=== PATIENT | female | born 1950 | race Caucasian/White ===

== ENCOUNTER → 2016-07-08 | Outpatient (CLI) | payer MEDICARE, OTHER ==
--- NOTE | 2016-07-09 10:45 | MM ---
Reason for exam: screening (asymptomatic). Last mammogram was performed 1 year ago. History: Patient is postmenopausal. Benign excisional biopsy of the right breast, 1969. Physical Findings: A clinical breast exam by your physician is recommended on an annual basis and results should be correlated with mammographic findings. MG 3D Screening Mammo W/Cad Bilateral CC and MLO view(s) were taken. Prior study comparison: July 05, 2015, right breast MG 3d work up w/cad RT. July 02, 2015, bilateral MG screening mammo w CAD. The breast tissue is almost entirely fat. Finding: There are typically benign calcifications in both breasts. No significant changes in finding since July 05, 2015 and July 02, 2015. ASSESSMENT: Benign, BI-RAD 2 RECOMMENDATION: Routine screening mammogram of both breasts in 1 year.
== END ==
LOC: RADMAMWWP 10:40
PROVIDERS: ATTEND Family Medicine
DX: Z12.31 Encounter for screening mammogram for malignant neoplasm of breast (principal)
CPT/HCPCS: 77063; G0202

== ENCOUNTER → 2017-07-27 | Outpatient (CLI) | payer MEDICARE, OTHER ==
--- NOTE | 2017-07-28 07:20 | MM ---
Reason for exam: screening (asymptomatic). Last mammogram was performed 1 year and 1 month ago. History: Patient is postmenopausal. Benign excisional biopsy of the right breast, 1970. Physical Findings: A clinical breast exam by your physician is recommended on an annual basis and results should be correlated with mammographic findings. MG 3D Screening Mammo W/Cad Bilateral CC and MLO view(s) were taken. Prior study comparison: July 08, 2016, bilateral MG 3d screening mammo w/cad. July 05, 2015, right breast MG 3d work up w/cad RT. July 05, 2015, right breast US breast workup RT. The breast tissue is almost entirely fat. Finding: There are a few typically benign round calcifications in both breasts. There is no discrete abnormality. ASSESSMENT: Benign, BI-RAD 2 RECOMMENDATION: Routine screening mammogram of both breasts in 1 year.
== END | disposition home or self-care (01) ==
LOC: RADMAMWWP 07:36
PROVIDERS: ATTEND Family Medicine
DX: Z12.31 Encounter for screening mammogram for malignant neoplasm of breast (principal)
CPT/HCPCS: 77063; 77067

== ENCOUNTER → 2018-08-23 | Outpatient (CLI) | payer MEDICARE, OTHER ==
--- NOTE | 2018-08-25 08:47 | MM ---
Reason for exam: screening (asymptomatic). Last mammogram was performed 1 year and 1 month ago. History: Patient is postmenopausal. Benign excisional biopsy of the right breast, 1970. Physical Findings: A clinical breast exam by your physician is recommended on an annual basis and results should be correlated with mammographic findings. MG 3D Screening Mammo W/Cad Bilateral CC and MLO view(s) were taken. Prior study comparison: July 27, 2017, bilateral MG 3d screening mammo w/cad. July 08, 2016, bilateral MG 3d screening mammo w/cad. No significant changes when compared with prior studies. ASSESSMENT: Benign, BI-RAD 2 RECOMMENDATION: Routine screening mammogram of both breasts in 1 year.
== END | disposition home or self-care (01) ==
LOC: RADMAMWWP 13:45
PROVIDERS: ATTEND Family Medicine
DX: Z12.31 Encounter for screening mammogram for malignant neoplasm of breast (principal)
CPT/HCPCS: 77063; 77067

== ENCOUNTER 2018-11-25 18:39 | Emergency (ER) | payer MEDICARE, OTHER ==
[2018-11-25] MEDS ORDERED: IBUPROFEN 600 MG TAB PO STA (19:29)
[2018-11-25] MEDS ORDERED: SODIUM CHLORIDE 0.9% 1,000 ML IV STA ×3 (19:29→21:49)
[2018-11-25] MEDS ORDERED: ACETAMINOPHEN TAB 500 MG TAB PO STA (19:29)
[2018-11-25 20:27] LABS: Basophils % (A) 0 %; Eosinophils # (A) 0.1 k/uL (0-0.7); Eosinophils % (A) 0 %; HCT 42.1 % (34.0-46.0); HGB 14.3 gm/dL (11.4-16.0); Lymphocytes # (A) 1.3 k/uL (1.0-4.8); Lymphocytes % (A) 7 %; MCH 30.5 pg (25.0-35.0); MCHC 33.9 g/dL (31.0-37.0); Mean Platelet Volume 7.4; Monocytes # (A) 1.1 k/uL (0-1.0); Monocytes % (A) 6 %; Neutrophils # (A) 15.2 k/uL (1.3-7.7); Neutrophils % (A) 84 %; Platelet Count 192 k/uL (150-450); RBC 4.68 m/uL (3.80-5.40); RDW 14.6 % (11.5-15.5); WBC 18.2 k/uL (3.8-10.6)
[2018-11-25 20:32] LABS: Albumin 4.1 g/dL (3.5-5.0); Calcium 9.2 mg/dL (8.4-10.2); Magnesium 1.8 mg/dL (1.6-2.3); Phosphorus 2.7 mg/dL (2.5-4.5); Potassium 3.7 mmol/L (3.5-5.1); Total Bilirubin 0.7 mg/dL (0.2-1.3); Total Protein 7.1 g/dL (6.3-8.2)
[2018-11-25 20:44] VITALS: RESP 17
[2018-11-25 21:15] LABS: Appearance,Urine Clear (Clear); Bilirubin,Urine Negative (Negative); Blood,Urine Small (Negative); Color,Urine Yellow; Glucose,Urine (UA) Negative (Negative); Hyaline Casts,Urine 3 /lpf (0-2); Ketones,Urine 1+ (Negative); Leukocyte Esterase,Urine Negative (Negative); Mucus,Urine Moderate /hpf; Nitrite,Urine Negative (Negative); PH, Urine 5.5 (5.0-8.0); Protein,Urine 1+ (Negative); RBC,Urine 8 /hpf (0-5); Specific Gravity,Urine 1.034 (1.001-1.035); Squamous Epithelial Cell,Urine 8 /hpf (0-4); Urobilinogen,Urine <2.0 mg/dL (<2.0); WBC,Urine 12 /hpf (0-5)
--- NOTE | 2018-11-25 21:34 | XR ---
EXAMINATION TYPE: XR chest 2V DATE OF EXAM: 11/25/2018 COMPARISON: NONE HISTORY: Fever and weakness TECHNIQUE: Frontal and lateral views of the chest are obtained. FINDINGS: There is no heart failure nor confluent pneumonic infiltrate. Heart size is normal. Costop hrenic angles are clear. Bony thorax is intact. IMPRESSION: No active cardiopulmonary disease. Normal heart.
[2018-11-25] MEDS ORDERED: SODIUM CHLORIDE 0.9% 1,000 ML IV ONE (21:47)
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
[2018-11-25 22:16] VITALS: BP 130/92; PULSE 88; TEMP 99.5
[2018-11-26] MEDS ORDERED: ENOXAPARIN 40 MG/0.4 ML SYRINGE SQ SCH (09:00)
== END 2018-11-25 22:24 | disposition home or self-care (01) ==
LOC: EC 18:39
DX: R50.9 Fever, unspecified (principal); R51 Headache; R42 Dizziness and giddiness; R53.81 Other malaise; R53.1 Weakness; M79.10 Myalgia, unspecified site; R11.0 Nausea; E78.5 Hyperlipidemia, unspecified; I10 Essential (primary) hypertension; Z79.899 Other long term (current) drug therapy; Z88.5 Allergy status to narcotic agent; Z87.891 Personal history of nicotine dependence
CPT/HCPCS: 36415; 71046; 80053; 81001; 83605; 83735; 84100; 85025; 87040; 87086; 87502; 96360; 96361; 99284

== ENCOUNTER → 2020-01-17 | Outpatient (CLI) | payer MEDICARE, OTHER ==
--- NOTE | 2020-01-17 09:45 | MM ---
Reason for exam: screening (asymptomatic). Last mammogram was performed 1 year and 5 months ago. History: Patient is postmenopausal. Benign excisional biopsy of the right breast, 1970. Took hormonal contraceptives for 6 months. Physical Findings: A clinical breast exam by your physician is recommended on an annual basis and results should be correlated with mammographic findings. MG 3D Screening Mammo W/Cad Bilateral CC and MLO view(s) were taken. Prior study comparison: August 23, 2018, bilateral MG 3d screening mammo w/cad. July 27, 2017, bilateral MG 3d screening mammo w/cad. There are scattered fibroglandular densities. There are benign appearing round calcifications bilaterally. There is no discrete abnormality. ASSESSMENT: Benign, BI-RAD 2 RECOMMENDATION: Routine screening mammogram of both breasts in 1 year.
== END | disposition home or self-care (01) ==
LOC: RADMAMWWP 07:43
PROVIDERS: ATTEND Family Medicine
DX: Z12.31 Encounter for screening mammogram for malignant neoplasm of breast (principal)
CPT/HCPCS: 77063; 77067

== ENCOUNTER → 2020-10-17 | Outpatient (CLI) | payer MEDICARE, OTHER ==
--- NOTE | 2020-10-17 15:12 | US ---
EXAMINATION TYPE: US kidneys/renal and bladder DATE OF EXAM: 10/17/2020 COMPARISON: NONE CLINICAL HISTORY: N18.3 kidney disease. CKD per order EXAM MEASUREMENTS: Right Kidney: 11.1 x 4.8 x 3.9 cm Left Kidney: 11.5x 3.8 x 4.6 cm Post Void Residual Volume: 31.0 mL Right Kidney: No hydronephrosis or masses seen Left Kidney: No hydronephrosis or masses seen Bladder: wnl Bilateral Jets seen: yes Normal Post Void Residual: yes There is no evidence for hydronephrosis at this point in time. No nephrolithiasis is seen. No gabriella s are identified. The urinary bladder is satisfactory distended. Bilateral ureteral jets are seen. IMPRESSION: No hydronephrosis is seen bilaterally.
== END | disposition home or self-care (01) ==
LOC: RADUSWWP 14:05
PROVIDERS: ATTEND Internal Medicine Nephrology
DX: N18.31 Chronic kidney disease, stage 3a (principal)
CPT/HCPCS: 76770

== ENCOUNTER → 2021-01-27 | Outpatient (CLI) | payer MEDICARE, OTHER ==
--- NOTE | 2021-01-28 10:52 | MM ---
Reason for exam: screening (asymptomatic). Last mammogram was performed 1 year ago. History: Patient is postmenopausal. Benign excisional biopsy of the right breast, 1970. Took hormonal contraceptives for 6 months. Physical Findings: A clinical breast exam by your physician is recommended on an annual basis and results should be correlated with mammographic findings. MG 3D Screening Mammo W/Cad Bilateral CC and MLO view(s) were taken. Prior study comparison: January 17, 2020, bilateral MG 3d screening mammo w/cad. August 23, 2018, bilateral MG 3d screening mammo w/cad. There are scattered fibroglandular densities. There are benign appearing round calcifications bilaterally. There is no discrete abnormality. ASSESSMENT: Benign, BI-RAD 2 RECOMMENDATION: Routine screening mammogram of both breasts in 1 year.
== END | disposition home or self-care (01) ==
LOC: RADMAMWWP 10:31
PROVIDERS: ATTEND Family Medicine
DX: Z12.31 Encounter for screening mammogram for malignant neoplasm of breast (principal); Z78.0 Asymptomatic menopausal state
CPT/HCPCS: 77063; 77067

== ENCOUNTER → 2021-10-24 | Outpatient (CLI) | payer MEDICARE, OTHER ==
--- NOTE | 2021-10-26 10:25 | US ---
EXAMINATION TYPE: US kidneys/renal and bladder DATE OF EXAM: 10/24/2021 COMPARISON: 10/17/2020 CLINICAL HISTORY: N18.31 KIDNEY DISEASE. CKD EXAM MEASUREMENTS: Right Kidney: 10.2 x 4.3 x 4.0 cm Left Kidney: 12.1 x 4.4 x 4.2 cm` Right Kidney: No hydronephrosis or masses seen Left Kidney: No hydronephrosis or masses seen Bladder: wnl Bilateral Jets seen: Yes IMPRESSION: 1. No suspicious renal ultrasound abnormality.
== END | disposition home or self-care (01) ==
LOC: RADUSWWP 16:22
PROVIDERS: ATTEND Internal Medicine Nephrology
DX: N18.31 Chronic kidney disease, stage 3a (principal)
CPT/HCPCS: 76770

== ENCOUNTER → 2022-02-06 | Outpatient (CLI) | payer MEDICARE, OTHER ==
--- NOTE | 2022-02-07 01:58 | MR ---
EXAMINATION TYPE: MR thoracic spine wo con DATE OF EXAM: 02/06/2022 COMPARISON: None HISTORY: Mid back pain for 2 months Multiplanar multiecho imaging of the thoracic spine with no contrast. The thoracic vertebrae have normal alignment. No compression fracture. Disc spaces are fairly normal for age. There are some spondylotic changes in the lower cervical spine with disc space narrowing at C5-6 and C6-7. The thoracic spinal cord has normal signal pattern. No edema. There is mild posterior disc bulging from T10 to L1. No spinal stenosis. There is developmentally adequate spinal canal. Ther e is no thoracic paraspinal mass. IMPRESSION: Minimal posterior disc bulging the lower thoracic spine. No spinal stenosis. No fracture.
== END | disposition home or self-care (01) ==
LOC: RADMRIMAIN 16:12
PROVIDERS: ATTEND Family Medicine
DX: M54.50 Low back pain, unspecified (principal)
CPT/HCPCS: 72146

== ENCOUNTER → 2022-07-08 | Outpatient (CLI) | payer MEDICARE, OTHER ==
--- NOTE | 2022-07-09 19:39 | MM ---
Reason for Exam: Screening (asymptomatic). Last mammogram was performed 1 year(s) and 5 month(s) ago. Patient History: Menarche at age 14. First Full-Term at age 16. Postmenopausal. Hormonal Contraceptives for 6 months. 1970, Benign Excisional Biopsy on the right side. Risk Values: Kanchan 5 year model risk: 1.4%. NCI Lifetime model risk: 3.2%. Prior Study Comparison: 08/23/2018 Bilateral Screening Mammogram, [facility]. 01/17/2020 Bilateral Screening Mammogram, [facility]. 01/27/2021 Bilateral Screening Mammogram, [facility]. Tissue Density: The breast tissue is almost entirely fat. Findings: Analyzed By CAD. There is no suspicious group of microcalcifications or new suspicious mass in either breast. Overall Assessment: Negative, BI-RAD 1 Management: Screening Mammogram of both breasts in 1 year. 1. Patient should continue monthly self breast exams. 2. A clinical breast exam by your physician is recommended on an annual basis. 3. This exam should not preclude additional follow-up of suspicious palpable abnormalities. Electronically signed and approved by: Yessi Antoine M.D. Radiologist
== END | disposition home or self-care (01) ==
LOC: RADMAMWWP 12:26
PROVIDERS: ATTEND Family Medicine
DX: Z12.31 Encounter for screening mammogram for malignant neoplasm of breast (principal); Z78.0 Asymptomatic menopausal state; Z98.890 Other specified postprocedural states
CPT/HCPCS: 77063; 77067

== ENCOUNTER 2022-10-02 09:22 | Day surgery (SDC) | payer MEDICARE, OTHER ==
[2022-09-30 09:56] VITALS: BMI 31.4
[~2022-10-02 09:22] MED LIST: LACTATED RINGERS 1,000 ML IV SCH
[2022-10-02 09:50] VITALS: TEMP 98
[2022-10-02] MEDS ORDERED: PROPOFOL 10 MG/ML 20 ML VIAL IV ONE (10:30)
--- NOTE | 2022-10-02 10:44 | P.PCN ---
Date of Procedure: 10/02/22 Procedure(s) Performed: BRIEF HISTORY: Patient is a 72-year-old pleasant white female scheduled for an elective colonoscopy as a part of screening for colon cancer. PROCEDURE PERFORMED: Colonoscopy with biopsy. PREOPERATIVE DIAGNOSIS: Screening for colon cancer. IV sedation per Anesthesia. PROCEDURE: After informed consent was obtained, the patient, was brought into the endoscopy unit. IV sedation was administered by Anesthesia under continuous monitoring. Digital rectal examination was normal. Initially the Olympus CF-160 flexible video colonoscope was then inserted in the rectum, gradually advanced into the cecum without any difficulty. Careful examination was performed as the scope was gradually being withdrawn. Ileocecal valve and the appendiceal orifice were visualized and appeared normal. Prep was excellent. Mucosa of the cecum, ascending colon, transverse colon, descending colon, sigmoid colon, and rectum appeared normal. In the proximal rectum there was a 3 mm polyp that was removed by cold biopsy.. Scattered sigmoid diverticulosis seen. Retroflexion was performed in the rectum and no lesions were seen. The patient tolerated the procedure well. IMPRESSION: 3 mm rectal polyp status post cold biopsy Scattered sigmoid diverticulosis RECOMMENDATIONS: Findings of this examination were discussed with the patient as well as her family. She was advised to follow with the biopsy results. If the biopsy result adenoma she can have a repeat colonoscopy in 5 years..
[2022-10-02 10:52] VITALS: PULSE 76; RESP 16
[2022-10-02 11:08] VITALS: BP 110/70
== END 2022-10-02 11:21 | disposition home or self-care (01) ==
LOC: ORWHC2ENDO 09:22
PROVIDERS: ATTEND Internal Medicine Gastroenterology
DX: Z12.11 Encounter for screening for malignant neoplasm of colon (principal); K62.1 Rectal polyp; K57.30 Diverticulosis of large intestine without perforation or abscess without bleeding; I10 Essential (primary) hypertension; E78.5 Hyperlipidemia, unspecified; Z79.899 Other long term (current) drug therapy; Z88.5 Allergy status to narcotic agent
CPT/HCPCS: 88305; 45380; J2704

== ENCOUNTER → 2023-04-01 | Outpatient (CLI) | payer MEDICARE, OTHER ==
[2023-04-01 12:38] LABS: Basophils % (A) 0 %; Eosinophils # (A) 0.1 k/uL (0-0.7); Eosinophils % (A) 1 %; HCT 42.4 % (34.0-46.0); Lymphocytes % (A) 34 %; MCH 31.7 pg (25.0-35.0); MCHC 32.9 g/dL (31.0-37.0); MCV 96.4 fL (80.0-100.0); Mean Platelet Volume 7.1; Monocytes # (A) 0.5 k/uL (0-1.0); Monocytes % (A) 8 %; Neutrophils # (A) 3.2 k/uL (1.3-7.7); Neutrophils % (A) 52 %; Platelet Count 219 k/uL (150-450); RDW 13.6 % (11.5-15.5)
[2023-04-01 12:40] LABS: ALT 28 U/L (4-34); AST 30 U/L (14-36); African American GFR (CKD) 64 (>60 ml/min/1.73 sqM); Albumin 4.1 g/dL (3.5-5.0); Albumin/Globulin Ratio 1.4; Alkaline Phosphatase 82 U/L (38-126); Anion Gap 9 mmol/L; Blood Urea Nitrogen 17 mg/dL (7-17); Calcium 9.5 mg/dL (8.4-10.2); Carbon Dioxide 26 mmol/L (22-30); Chloride 107 mmol/L (98-107); Glucose 97 mg/dL (74-99); Magnesium 2.1 mg/dL (1.6-2.3); Non-African American GFR(CKD) 55 (>60 ml/min/1.73 sqM); Potassium 4.3 mmol/L (3.5-5.1); Sodium 142 mmol/L (137-145); Total Bilirubin 0.7 mg/dL (0.2-1.3); Total Protein 7.1 g/dL (6.3-8.2)
[2023-04-01 12:47] LABS: NT-Pro-B-Type Natriuretic Pept 222 pg/mL
[2023-04-01 12:56] LABS: T4, Free (Free Thyroxine) 0.99 ng/dL (0.78-2.19)
== END | disposition home or self-care (01) ==
LOC: LABWHC1 11:40
PROVIDERS: ATTEND Family Medicine
DX: I10 Essential (primary) hypertension (principal); R06.09 Other forms of dyspnea; R20.8 Other disturbances of skin sensation; R06.00 Dyspnea, unspecified
CPT/HCPCS: 36415; 80053; 83735; 83880; 84439; 84443; 84481; 84484; 85025; 85379

== ENCOUNTER → 2023-04-06 | Outpatient (CLI) | payer MEDICARE, OTHER ==
--- NOTE | 2023-04-06 11:10 | CT ---
EXAMINATION TYPE: CT angio chest CT DLP: 667 mGycm, Automated exposure control for dose reduction was used. DATE OF EXAM: 04/06/2023 10:38 AM COMPARISON: None CLINICAL INDICATION:Female, 72 years old with history of I71.20 THORACIC AORTIC ANEURYSM, WITHOUT RUP TURE; Thoracic aortic aneurysm w/o rupture TECHNIQUE/CONTRAST: CTA scan of the thorax is performed with IV Contrast, patient injected with 80 mL of Isovue 370, MIP images are created and reviewed these are created on a separate workstation.. FINDINGS: Pulmonary Artery: There is no evidence for a filling defect within the pulmonary vasculature to sugge st acute pulmonary embolism. The pulmonary artery is of normal size. Lungs/Pleura: Mild centrilobular emphysema changes are present. No evidence of focal consolidation, p leural effusion or pneumothorax. Airway: Large airways are patent. Heart: Heart is within normal limits for size. Mild to moderate atherosclerotic desiccation is greate r aorta. Vasculature: No evidence for intramural hematoma on noncontrast imaging. No evidence of intimal flap to suggest dissection. No aneurysm identified. Scattered atherosclerotic disease. The ascending thora cic aorta is within normal limits for size measuring up to 3.6 cm. Descending thoracic aorta and visu alized portions of the abdominal aorta are within normal limits for size. Mediastinum: No gross evidence of adenopathy. Musculoskeletal: No acute osseous abnormalities Soft Tissues: Unremarkable. Lower neck: No significant findings. Upper Abdomen: The gallbladder is surgically absent. There is dilation of the central hepatic biliary system partially visualized. Scattered simple appearing cyst. Small probable lipid rich adrenal alexandra colette. IMPRESSION: 1. No evidence of pulmonary embolism, aneurysm or evidence for dissection. The ascending and descendi ng thoracic aorta are within normal limits for size.r 2. Mild emphysema changes. 3. Cholecystectomy with dilation of the central biliary system. This can be further evaluated with MR I MRCP for stricture.
== END | disposition home or self-care (01) ==
LOC: RADCTMAIN 08:33
PROVIDERS: ATTEND Family Medicine
DX: I71.20 Thoracic aortic aneurysm, without rupture, unspecified (principal); J43.2 Centrilobular emphysema; Z90.89 Acquired absence of other organs
CPT/HCPCS: 71275; Q9967

== ENCOUNTER → 2023-04-19 | Outpatient (CLI) | payer MEDICARE, OTHER ==
[~2023-04-19] MED LIST changes: +DOBUTamine DRIP for NUC MED 500 MG in DEXTROSE/WATER 1 250ML.BAG IV PRN; -LACTATED RINGERS 1,000 ML IV SCH
--- NOTE | 2023-04-19 13:47 | CA ---
Dobutamine Stress Echocardiogram Report Tamara Leon Age: 72 Gender: F : 1950 Exam Date: 04/19/2023 10:10 Exam Location: [facility] Ordering Physician: Yomi Herrera MD Referring Physician: Dilcia Bhakta PAC Account Associate: Qing Dave [facility] Technologist: Ht (in): 66 Wt (lb): 200 Procedure CPT: Indication: R06.09 Dyspnea ICD-9 Codes: Rhythm: Patient History: DEBORA, PALP, HTN, CHOL, FAMILY HX, TOB (QUIT 10 YRS AGO, PREVIOUS 1PPD X 30YRS) Cardiac Medications: ATORVASTAIN, LISINOPRIL, FAMOTIDINE, VIT D3 Medications in past 24 hours: Contrast: Total Dose (mL): Stress Results Protocol: Dobutamine Peak Dose (???g/kg/min): 30 Duration (min:sec): Atropine:(mg) None Target HR: 124 Double Product: Resting HR: 69 Resting BP: 148 / 67 Peak HR: 133 Peak BP: 148 / 67 Max Predicted HR: 146 91 % Max Predicted HR Stress Summary: BP Response: Reason for Termination: Exceeded target heart rate (85% max predicted) Cardiac Symptoms: Test terminated after reaching target heart rate (85% max predicted) ECG Analysis Resting EKG: Normal sinus rhythm, normal axis, no blocks, heart rate 69 bpm Stress EKG: No significant ST-T wave changes diagnostic for ischemia by ST segment analysis Arrhythmia: There were no arrhythmias or ectopic beats Echo Analysis Base Echo Analysis: No regional wall motion abnormality at rest Normal global LV size and systolic function Low Echo Anaylsis: Normal augmentation off left ventricular systolic function. No regional wall motion abnormality with dobutamine infusion Peak Echo Analysis: Normal augmentation off left ventricular systolic function. No regional wall motion abnormality with dobutamine infusion Recovery Echo: No regional wall motion abnormality did not recovery MEASUREMENTS (Male/Female) Normal Values CONCLUSIONS Normal dobutamine stress echocardiogram Nonischemic echocardiographic response to dobutamine infusion Nonischemic ECG response to dobutamine infusion Normal hemodynamic response to dobutamine Dr Travis Henderson (Electronically Signed) Final Date: 19 April 2023 13:46
== END | disposition home or self-care (01) ==
LOC: RADNMMAIN 09:28
PROVIDERS: ATTEND Family Medicine
DX: R06.09 Other forms of dyspnea (principal)
CPT/HCPCS: 93351

== ENCOUNTER → 2023-05-04 | Outpatient (CLI) | payer MEDICARE, OTHER ==
--- NOTE | 2023-05-04 08:52 | MR ---
EXAMINATION TYPE: MR MRCP DATE OF EXAM: 05/04/2023 8:23 AM CLINICAL INDICATION:Female, 72 years old with history of R93.2; PHH, Abdominal pain, abnormal CT. COMPARISON: MR thoracic spine 02/06/2022, CT 04/06/2023, MRI lumbar spine 06/01/2014. TECHNIQUE: Multi planar, T2-weighted imaging with and without fat saturation and chemical shift imag ing was performed of the abdomen. Then, heavily T2 weighted imaging (half-Fourier acquisition single- shot turbo spin-echo) was utilized in order to study the biliary system. Maximum intensity projectio n images were reconstructed from the original data of the biliary tree. 3D images were created on a [employer] work station. No Gadolinium given. FINDINGS: Lower Thorax: No evidence for acute process. MRCP: * The intrahepatic ducts are dilated centrally extending into the periphery. * The common bile duct at the level of the pancreatic head measures 13 mm in size. * The common hepatic duct measures 19 mm in size. * The pancreatic duct is prominent and dilated extending from the patella to the tail, measuring up to 5 mm in the pancreatic neck/body. * The gallbladder appears surgically absent with suspected cystic duct remnant measuring up to 17 x 12 mm Abdomen: Liver: Few scattered high T2 signal lesions likely representing cysts the largest measuring 18 x 15 m m. Mild signal dropout on chemical shift artifact phase imaging. Pancreas: Main pancreatic duct is prominent measuring up to 5 mm as described above. There is suspect ed multiple dilated sidebranches most pronounced in the pancreatic body. A high T2 focus in the pancr eatic body/tail measuring 6 mm is present. Spleen: Unremarkable. Adrenal glands: Unremarkable. Kidneys: Unremarkable. Stomach and Bowel: Small hiatal hernia is present. Peritoneum: No evidence of pneumoperitoneum or free fluid. Vasculature: Unremarkable. No aortic aneurysm. Musculoskeletal: The osseous structures appear intact. Lymph Nodes: No gross evidence for lymphadenopathy. Abdominal wall: Unremarkable. IMPRESSION: 1. Postcholecystectomy changes with dilation of the main pancreatic duct and the extrahepatic and ce ntral intrahepatic biliary system. No evidence for choledocholithiasis. Comparing to 06/01/2014 MRI anna mbar spine these findings are partially visualized appears to been present at that time. 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 Consider ERCP and patient's history of abdominal pain. 2. Prominent main pancreatic duct and sidebranches felt to be seen dating back to 2013 and could rel ate to stricture at the ampulla.
== END | disposition home or self-care (01) ==
LOC: RADMRIMAIN 07:43
PROVIDERS: ATTEND Internal Medicine Gastroenterology
DX: K86.89 Other specified diseases of pancreas (principal); R93.2 Abnormal findings on diagnostic imaging of liver and biliary tract; R10.9 Unspecified abdominal pain; Z90.49 Acquired absence of other specified parts of digestive tract
CPT/HCPCS: 74181

== ENCOUNTER → 2023-11-09 | Outpatient (CLI) | payer MEDICARE, OTHER ==
--- NOTE | 2023-11-10 08:21 | MM ---
Reason for Exam: Screening (asymptomatic). Last mammogram was performed 1 year(s) and 4 month(s) ago. Patient History: Menarche at age 14. First Full-Term at age 16. Postmenopausal. Hormonal Contraceptives for 6 months. 1970, Benign Excisional Biopsy on the right side. Risk Values: Kanchan 5 year model risk: 1.4%. NCI Lifetime model risk: 3.0%. Prior Study Comparison: 01/17/2020 Bilateral Screening Mammogram, [facility]. 01/27/2021 Bilateral Screening Mammogram, [facility]. 07/08/2022 Bilateral MG 3D screening mammo w/cad, [facility]. Tissue Density: The breasts are almost entirely fatty. Findings: Analyzed By CAD. Right breast: There is no suspicious group of microcalcifications or new suspicious mass. Benign-appearing calcifications right breast. Left breast: There is no suspicious group of microcalcifications or new suspicious mass. Benign-appearing calcifications left breast. Overall Assessment: Benign, BI-RAD 2 Management: Screening Mammogram of both breasts in [address] [facility] will attempt to contact patient to return for supplemental views and ultrasound if indicated. Patient should continue monthly self-breast exams. A clinical breast exam by your physician is recommended on an annual basis. This exam should not preclude additional follow-up of suspicious palpable abnormalities. Note on Kanchan scores and lifetime risk: 1. A Kanchan score greater than 3% is considered moderate risk. If this is the case, consider specialist referral to assess eligibility for a risk reducing agent. 2. If overall lifetime risk for the development of breast cancer is 20% or higher, the patient may qualify for future screening with alternating mammogram and breast MRI. Electronically signed and approved by: Beny Marquis DO
== END | disposition home or self-care (01) ==
LOC: RADMAMWWP 15:06
PROVIDERS: ATTEND Family Medicine
DX: Z12.31 Encounter for screening mammogram for malignant neoplasm of breast (principal)
CPT/HCPCS: 77063; 77067

== ENCOUNTER → 2024-12-06 | Outpatient (CLI) | payer MEDICARE, OTHER ==
--- NOTE | 2024-12-06 13:11 | MM ---
Reason for Exam: Screening (asymptomatic). Last mammogram was performed 1 year(s) and 1 month(s) ago. Patient History: Menarche at age 14. First Full-Term at age 16. Postmenopausal. Hormonal Contraceptives for 6 months. 1970, Benign Excisional Biopsy on the right side. Risk Values: Kanchan 5 year model risk: 1.4%. NCI Lifetime model risk: 2.8%. Prior Study Comparison: 01/27/2021 Bilateral Screening Mammogram, [facility]. 07/08/2022 Bilateral MG 3D screening mammo w/cad, [facility]. 11/09/2023 Bilateral MG 3D screening mammo w/cad, [facility]. Tissue Density: There are scattered areas of fibroglandular density. Findings: Analyzed By CAD. There are a few small benign-appearing round calcifications scattered throughout the bilateral breasts. There is no suspicious group of microcalcifications or new suspicious mass in either breast. Overall Assessment: Benign, BI-RAD 2 Management: Screening Mammogram of both breasts in 1 year. . Patient should continue monthly self-breast exams. A clinical breast exam by your physician is recommended on an annual basis. This exam should not preclude additional follow-up of suspicious palpable abnormalities. Note on Kanchan scores and lifetime risk: 1. A Kanchan score greater than 3% is considered moderate risk. If this is the case, consider specialist referral to assess eligibility for a risk reducing agent. 2. If overall lifetime risk for the development of breast cancer is 20% or higher, the patient may qualify for future screening with alternating mammogram and breast MRI. [facility], , 12/06/2024 1:08 PM. Electronically signed and approved by: Seven Chappell M.D.
== END | disposition home or self-care (01) ==
LOC: RADMAMWWP 11:22
PROVIDERS: ATTEND Family Medicine
DX: Z12.31 Encounter for screening mammogram for malignant neoplasm of breast (principal); R92.323 Mammographic fibroglandular density, bilateral breasts; Z78.0 Asymptomatic menopausal state; Z92.0 Personal history of contraception
CPT/HCPCS: 77063; 77067